=== PATIENT | male | born 1955 | race Caucasian/White ===

== ENCOUNTER 2019-09-24 19:47 | Inpatient (IN) | payer MEDICARE ==
[~2019-09-24] VITALS: Ht 172.7 cm; Wt 70.3 kg
--- NOTE | 2019-09-24 20:03 | NUR ---
Patient in bed, awaiting ER MD gamboa.
[2019-09-24] MEDS ORDERED: MAGN2PIG IV (20:07)
[2019-09-24] MEDS ORDERED: LORA0.5T48 PO (20:07)
[2019-09-24] MEDS ORDERED: DIPH50VI15 IV (20:07)
[2019-09-24] MEDS ORDERED: DEXT50VI3 IV (20:07)
[2019-09-24] MEDS ORDERED: MAGN4PIG3 IV (20:07)
[2019-09-24] MEDS ORDERED: IPRA0.2S6 NEB (20:07)
[2019-09-24] MEDS ORDERED: ALBU1.25 IH (20:07)
[2019-09-24] MEDS ORDERED: BISA10SU95 RC (20:07)
[2019-09-24] MEDS ORDERED: ACET-2154 PO (20:07)
[2019-09-24] MEDS ORDERED: GLUC1VIA2 SQ (20:07)
[2019-09-24] MEDS ORDERED: CYAN25003 SL (20:07)
[2019-09-24] MEDS ORDERED: CLON0.1T PO (20:07)
[2019-09-24] MEDS ORDERED: INSU100I14 SQ (20:07)
[2019-09-24] MEDS ORDERED: ENOX40DI9 SQ (20:07)
[2019-09-24] MEDS ORDERED: PANT40TA2 PO (20:07)
[2019-09-24] MEDS ORDERED: [UNRECOGNIZED DRUG - CODE] IV (20:12)
[2019-09-24] MEDS ORDERED: [UNRECOGNIZED DRUG - CODE] IV (20:12)
[2019-09-24] MEDS ORDERED: TEMA7.5C PO (20:12)
[2019-09-24] MEDS ORDERED: ONDA4VIA52 IV (20:12)
[2019-09-24] MEDS ORDERED: NITR0.4T48 SL (20:12)
[2019-09-24] MEDS ORDERED: [UNRECOGNIZED DRUG - CODE] IV (20:12)
--- NOTE | 2019-09-24 20:33 | NUR ---
Report to Flora MENA on MHU
--- NOTE | 2019-09-24 20:36 | NUR ---
Pt. admitted to MHU , under care of Dr. Gallegos/Alesha. Belongs List completed
[2019-09-24] MEDS ORDERED: ACETAMINOPHEN 325 MG TABLET PO PRN (21:00)
[2019-09-24] MEDS ORDERED: BLOOD SUGAR DIAGNOSTIC 1 EACH STRIP VI ONE (21:00)
[2019-09-24] MEDS ORDERED: MAGNESIUM HYDROXIDE 30 ML LIQUID UDC PO PRN (21:00)
[2019-09-24] MEDS ORDERED: TEMAZEPAM 7.5 MG CAPSULE PO PRN (21:00)
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
[2019-09-24] MEDS ORDERED: NITROGLYCERIN 0.4 MG/TAB BOTTLE SL SCH (22:45)
[2019-09-24] MEDS ORDERED: BISACODYL 10 MG SUPP.RECT RC SCH (22:45)
[2019-09-24] MEDS ORDERED: GLUCAGON,HUMAN RECOMBINANT 1 MG VIAL SQ SCH (22:45)
[2019-09-24] MEDS ORDERED: CLONIDINE HCL 0.1 MG TABLET PO SCH (22:45)
[2019-09-24] MEDS ORDERED: IPRATROPIUM BROMIDE 0.5 MG/2.5 ML NEBU NEB SCH (22:45)
[2019-09-24] MEDS ORDERED: ACETAMINOPHEN 325 MG TABLET PO SCH (22:45)
[2019-09-24] MEDS ORDERED: ALBUTEROL SULFATE 1.25 MG/3 ML NEBU IH SCH (22:45)
[2019-09-24] MEDS ORDERED: ALBUTEROL SULFATE 1.25 MG/3 ML NEBU IH PRN (23:14)
[2019-09-24] MEDS ORDERED: IPRATROPIUM BROMIDE 0.5 MG/2.5 ML NEBU NEB PRN (23:30)
[2019-09-24] MEDS ORDERED: BISACODYL 10 MG SUPP.RECT RC PRN (23:30)
[2019-09-24] MEDS ORDERED: GLUCAGON,HUMAN RECOMBINANT 1 MG VIAL SQ PRN (23:30)
[2019-09-24] MEDS ORDERED: CLONIDINE HCL 0.1 MG TABLET PO PRN (23:30)
[2019-09-24] MEDS ORDERED: NITROGLYCERIN 0.4 MG/TAB BOTTLE SL PRN (23:30)
[2019-09-24 23:41] VITALS: BP 158/81
[2019-09-25] MEDS: LORAZEPAM 1 MG TABLET PO PRN ×2 (01:43→10:50)
--- NOTE | 2019-09-25 06:44 | NUR ---
patient slept for approx 6.15 hrs through the night. will continue to monitor.
[2019-09-25 07:30] VITALS: BP 133/72
[2019-09-25 07:39] LABS: BASOPHILS # (AUTO) 0.1 K/uL (0.0-8.0); BASOPHILS % (AUTO) 1.2 % (0.0-2.0); EOSINOPHILS # (AUTO) 0.1 K/uL (0.0-0.7); EOSINOPHILS % (AUTO) 2.2 % (0.0-7.0); HEMATOCRIT 36.3 % (36.7-47.1); HEMOGLOBIN 12.6 g/dL (12.5-16.3); LYMPHOCYTES # (AUTO) 1.2 K/uL (20.0-40.0); LYMPHOCYTES % (AUTO) 27.7 % (20.5-51.5); MEAN CORPUSCULAR HEMOGLOBIN 31.4 uug (23.8-33.4); MEAN CORPUSCULAR HGB CONC 35 g/dL (32.5-36.3); MEAN CORPUSCULAR VOLUME 90.6 fL (73.0-96.2); MONOCYTES # (AUTO) 0.5 K/uL (2.0-10.0); MONOCYTES % (AUTO) 10.3 % (0.0-11.0); NEUTROPHILS # (AUTO) 2.6 K/uL (1.8-8.9); NEUTROPHILS % (AUTO) 58.6 % (38.5-71.5); PLATELET COUNT (AUTO) 196 K/uL (152-348); RED BLOOD CELL COUNT(AUTO) 4.01 MIL/uL (4.06-5.63); WHITE BLOOD COUNT (AUTO) 4.5 K/uL (3.6-10.2)
[2019-09-25 07:50] LABS: ALANINE AMINOTRANSFERASE 18 U/L (16-63); ALKALINE PHOSPHATASE 89 U/L (50-136); ASPARTATE AMINOTRANSFERASE 14 U/L (15-37); BILIRUBIN,TOTAL 0.8 mg/dL (0.2-1.0); CARBON DIOXIDE 30 mmol/L (21-32); CHLORIDE 99 mmol/L (98-107); CHOLESTEROL 140 mg/dL (<200); CREATININE 0.6 mg/dL (0.6-1.3); GLUCOSE 92 mg/dL (74-106); HDL CHOLESTEROL 68 mg/dL (40-60); POTASSIUM 3.9 mmol/L (3.5-5.1); TOTAL PROTEIN, SERUM 5.6 g/dL (6.4-8.2); TRIGLYCERIDES 42 MG/DL (30-150); UREA NITROGEN, BLOOD 9 mg/dL (7-18)
[2019-09-25] MEDS: ENOXAPARIN SODIUM 40 MG/0.4 ML DISP.SYRIN SQ SCH (09:57)
[2019-09-25] MEDS: PANTOPRAZOLE SODIUM 40 MG TABLET.DR PO SCH (10:36)
--- NOTE | 2019-09-25 15:00 | NUR ---
Gps/Churn Operator- Had been checking doors, forgetful, kept asking about his clothes. Noted patient removing his hospital gown,, per PRINCIPAL ARCHITECT shirt was offered to him, but kept removing. Discouraged from disrobing. Noted patient couple time walking around with pillow case wrapped on his feet, socks offered.
--- NOTE | 2019-09-25 15:06 | NUR ---
Initial discharge plan: Patient currently has this address on file: [address] [address]. Patient unable to answer whether or not this is his current living address. floor service worker spring will continue to work with patient and MD to ensure a safe and proper discharge plan.
--- NOTE | 2019-09-25 15:07 | NUR ---
Social Work Note: This field underwriter called the two number listed in the patient's chart medical record from [facility] ([phone]) which is not a working number and ([phone]) and the person answering said he just got this number 2 months ago and doesn't know anyone by the patient's name. [facility][phone][facility]to inquire about patient and see if he is connected with them and possibly get an address on file for the patient, however, they are unable to give me any information.
--- NOTE | 2019-09-25 15:25 | NUR ---
Social Work Note: castables worker contacted [facility] ([phone]) to cofirm if patient is part of their system. Frances stated that the patient has been there last 3 years ago for services. ABHINAV confirmed the pt's address which is different from the one they have in their system. Frances was able to give this advertising copy writer a phone number for a sister named Enma ([phone]). this advertising copy writer called Enma and left a voicemail, waiting for a call back.
[2019-09-25 15:46] VITALS: BP 129/68
--- NOTE | 2019-09-25 16:16 | NUR ---
Firearms Report (DOJ): Mapping Editor completed and submitted a DPJ firearms report for 5150 grave disability certification. A copy of report has been placed in patient chart.
[2019-09-25] MEDS: MAG HYDROX/AL HYDROX/SIMETH 30 ML LIQUID UDC PO PRN (18:39)
[2019-09-25 20:09] VITALS: BP 157/63
[2019-09-26] MEDS: PANTOPRAZOLE SODIUM 40 MG TABLET.DR PO SCH (06:35)
--- NOTE | 2019-09-26 06:53 | NUR ---
PATIENT SLEPT FOR APPROX 7.30 HRS THROUGH THE NIGHT. PATIENT CONTINUE WITH LOW DEPRESSED MOOD, BLUNTED AFFECT, ISOLATED, WITHDRAWN, REFUSING TO ANSWER QUESTION, DECREASED EATING. PT REFUSED MOM FOR CONSTIPATION SINCE NO RECORDED BM SINCE 09/14. PT ALSO REFUSED PRUNE JUICE. V/S STABLE AT THIS TIME. WILL CONTINUE TO MONITOR. Addendum: 09/26/19 at 0700 by JUAN MIGUEL VELOZ RN PLEASE DISREGARD THIS NOTE: WRONG PATIENT.
--- NOTE | 2019-09-26 07:02 | NUR ---
PATIENT SLEPT FOR APPROX 7.30 HRS THROUGH THE NIGHT. HE WAS SEEN BY DR MCGUIRE LAST NIGHT. HE IS COMPLIANT WITH MEDICATION AND CARE. HE IS NOTED FORGETFUL, POOR INSIGHT AND JUDGMENT INTO HIS ADMISSION TO MHU IS ALSO NOTED. WILL CONTINUE TO MONITOR.
[2019-09-26 07:30] VITALS: BP_SYST 148; BP_SYST 150; BP_DIAS 73
[2019-09-26] MEDS: risperiDONE 1 MG TABLET PO SCH ×3 (09:00→20:34)
[2019-09-26] MEDS: CYANOCOBALAMIN 1,000 MCG TABLET PO SCH (10:23)
[2019-09-26] MEDS: ENOXAPARIN SODIUM 40 MG/0.4 ML DISP.SYRIN SQ SCH (11:07)
[2019-09-26 16:53] VITALS: BP 141/72
[2019-09-26 20:13] VITALS: BP 142/68
--- NOTE | 2019-09-27 06:17 | NUR ---
Gps: patient remain calm and cooperative but forgetful, slept 5.15 hrs through the night. assisted with adl's. continue monito for safety.
[2019-09-27] MEDS: PANTOPRAZOLE SODIUM 40 MG TABLET.DR PO SCH (06:28)
[2019-09-27 07:30] VITALS: BP 135/78
[2019-09-27] MEDS: ENOXAPARIN SODIUM 40 MG/0.4 ML DISP.SYRIN SQ SCH (08:28)
[2019-09-27] MEDS: CYANOCOBALAMIN 1,000 MCG TABLET PO SCH (08:29)
[2019-09-27] MEDS: risperiDONE 1 MG TABLET PO SCH ×2 (08:44→21:01)
--- NOTE | 2019-09-27 08:55 | NUR ---
PHARMACY NOTE; Patients am dose of 1mg Risperidone was given per order.
--- NOTE | 2019-09-27 15:53 | NUR ---
PATIENT REMAINS CALM BUT ISOLATIVE AND WITHDRAWN. ANSWERS TO QUESTION ARE EITHER NOT ACKNOWLEDGED OR HE WILL ANSWER ONE AND NO MORE. HE KEPT FOLDING HIS T-SHIRT. ENCOURAGED TO COME OUT AND PARTICIPATE IN GROUP THERAPY.WILL CONTINUE TO MONITOR.
[2019-09-27 16:01] VITALS: BP 150/72
[2019-09-27 20:00] VITALS: BP 143/70
[2019-09-27] MEDS: LORAZEPAM 1 MG TABLET PO PRN (22:13)
--- NOTE | 2019-09-27 22:14 | NUR ---
PT WAS NOTED ANXIOUS AND HAVING VISUAL HALLUCINATION. HE APPROACHED THIS SMOKING PIPES CLEANER AND STATED, "COME COME, THERE IS SOMETHING GOING ON IN MY ROOM". PATIENT NOTED HYPERVIGILANT. HE WAS REASSURED AND REDIRECTED. ATIVAN 1MG PO PRN WAS GIVEN. WILL CONTINUE TO MONITOR.
[2019-09-28] MEDS: PANTOPRAZOLE SODIUM 40 MG TABLET.DR PO SCH (06:39)
--- NOTE | 2019-09-28 07:00 | NUR ---
Patient slept for approx. 4.45 hrs through the night. compliant with medication regiment and care. will continue to monitor.
[2019-09-28 08:03] VITALS: BP 140/74
[2019-09-28] MEDS: CYANOCOBALAMIN 1,000 MCG TABLET PO SCH (08:35)
[2019-09-28] MEDS: risperiDONE 1 MG TABLET PO SCH ×2 (08:35→20:04)
[2019-09-28] MEDS: ENOXAPARIN SODIUM 40 MG/0.4 ML DISP.SYRIN SQ SCH (08:36)
--- NOTE | 2019-09-28 12:08 | NUR ---
Discharge Planning: copy worker faxed patient's referral packet with attention to [place] to the following facilities for review and possible placement; [facility] ([phone]), [facility] ([phone]), [facility] ([phone]), [facility] ([phone]). Addendum: 09/28/19 at 1559 by DEONNA HURTADO Patient is accepted to [facility] ([phone]) upon discharge.
[2019-09-28 15:51] VITALS: BP 131/59
[2019-09-28 20:00] VITALS: BP 157/68
[2019-09-28] MEDS: risperiDONE 0.5 MG TABLET PO SCH (21:00)
[2019-09-28] MEDS ORDERED: risperiDONE 0.5 MG TABLET PO ONE (22:00)
[2019-09-28] MEDS ORDERED: risperiDONE 0.5 MG TABLET ONE (22:34)
[2019-09-29] MEDS: PANTOPRAZOLE SODIUM 40 MG TABLET.DR PO SCH (06:33)
[2019-09-29 07:30] VITALS: BP 124/62
[2019-09-29] MEDS: risperiDONE 0.5 MG TABLET PO SCH ×2 (08:45→20:07)
[2019-09-29] MEDS: CYANOCOBALAMIN 1,000 MCG TABLET PO SCH (08:47)
[2019-09-29] MEDS: ENOXAPARIN SODIUM 40 MG/0.4 ML DISP.SYRIN SQ SCH (08:53)
[2019-09-29 16:00] VITALS: BP 115/67
[2019-09-29 20:20] VITALS: BP 124/69
--- NOTE | 2019-09-29 23:55 | NUR ---
GPS ADMISSION NOTED: AT APPROX 2300 ADMITTED 62 YEARS OLD FEMALE, VIA WHEELCHAIR, FOR[place] ER TO [facility] ON A 5150 FOR GD. PER RECORDS, PATIENT COMES FROM [facility] PER HOLD, PATIENT WAS GETTING CONFUSED, AGGRESSIVE AND AGITATIVE BECAUSE THEY ARE NOT LETTING HER GO TO [place] WHERE SHE BELIEVES SHE LIVES, DURING FACE TO FACE ASSESSMENT BY CRISIS RN, PATIENT STATED "I AM HERE BECAUSE THEY WANT ME TO VISIT MY MOTHER MARII". "I DON'T FEEL GOOD BECAUSE I ATE TOO MUCH ENFERMEDADES , CHOLESTEROL, SYPHILIS AND ARTHRITIS. I NEED 4 MORE TYLENOL TO FEEL BETTER". SHE ALSO BECAME AGGRESSIVE TOWARD THE CRISIS RN WHEN ASKED IF SHE HAD A FAMILY. UPON ADMISSION, PATIENT WAS NOTED CALM AND PLEASANT, SHE STATED, "HAPPY NEW YEARS, HAPPY NEW YEARS". FACE TO FACE ASSESSMENT WAS DONE, PT REFLECTS WHAT IS WRITTEN ON THE HOLD. SHE IS NOTE A/O X 3 (KNEW HER NAME, TIME, AND SHE STATED, "THIS IS A HOSPITAL") HOWEVER, PATIENT IS NOTED TANGENTAL, DELUSIONAL AND FLIGHT OF IDEAS. WHEN ASKED WHAT SHE IS HERE, SHE STATED, "BECAUSE I NEED TO GO TO [place], THAT IS WHERE MY SON AND SISTER LIVES". PT DENIES SI/HI/VH/AH. PATIENT WAS GIVEN HER ADVISEMENT. SHE STATED, "YES I GOT UPSET WITH THEM BECAUSE THEY DID NOT WANT TO TAKE MY BROTHER TO SURGERY BECAUSE HIS LEGS ARE MISSING AND HE NEEDS SURGERY". PATIENT WAS GIVEN THE "PATIENT RIGHTS" BOOKLET. SHE WAS INTRODUCED TO UNIT RULES, HER ROOM AND ROOM MATE AND V/S WERE TAKEN. ACCUCHECK 105, PATIENT WAS GIVEN SNACKS AND PO FLUIDS. HER BELONGINGS WERE INVENTORIED AND SECURED AND STORED. PT CHANGED INTO HOSPITAL GOWN, SKIN ASSESSMENT WAS DONE, SKIN NOTED INTACT. PATIENT IS UNDER THE CARE OF DR FOX AND DR CHO. WE WILL CONTINUE TO MONITOR, Addendum: 09/30/19 at 0154 by JUAN MIGUEL VELOZ RN PLEASE DISREGARD THIS NOTE. WRONG PATIENT. Addendum: 09/30/19 at 0155 by JUAN MIGUEL VELOZ RN PLEASE DISREGARD THIS NOTE, WRONG PATIENT
--- NOTE | 2019-09-30 | NUR ---
PATIENT CONTINUE PACING THE HALLWAY AT TIMES. NOTED DELUSIONAL, TANGENTAL, FLIGHT OF IDEAS, INTRUSIVE. HOWEVER, NO AGGRESSIVE/COMBATIVE BX NOTED AT THIS TIME. PATIENT REFUSED PO PRNs MEDICATION FOR ANXIETY AND FOR INSOMNIA. HE STATED, "DON'T GIVE ME THAT, IT IS POISON" "I AM NOT TAKING ANY MORE PILLS". PATIENT IS REASSURED AND REDIRECTED. WILL CONTINUE TO MONITOR.
--- NOTE | 2019-09-30 06:35 | NUR ---
PATIENT SLEPT FOR APPROX. 1.00 HRS THROUGH THE NIGHT. PO PRNs WERE OFFERED; HOWEVER, PATIENT REFUSED. WILL CONTINUE TO MONITOR.
[2019-09-30] MEDS: PANTOPRAZOLE SODIUM 40 MG TABLET.DR PO SCH (06:55)
[2019-09-30] MEDS: CYANOCOBALAMIN 1,000 MCG TABLET PO SCH (08:19)
[2019-09-30] MEDS: risperiDONE 0.5 MG TABLET PO SCH ×2 (08:19→20:07)
[2019-09-30 08:30] VITALS: BP 142/77
--- NOTE | 2019-09-30 12:42 | NUR ---
received a call from a Officer Arslan Oglesby from [facility] , officer Mendel says that he left message with school social worker that his investigating a certain bank account of the patient and he needs to reach school social worker, he wish to get return call or got email at [email or web address] report#[phone] for reference , will f/up with school social worker
[2019-09-30 15:49] VITALS: BP 128/66
[2019-09-30 20:47] VITALS: BP 133/66
[2019-10-01] MEDS: PANTOPRAZOLE SODIUM 40 MG TABLET.DR PO SCH (06:06)
[2019-10-01 07:58] VITALS: BP 116/62
[2019-10-01] MEDS: risperiDONE 0.5 MG TABLET PO SCH ×2 (09:06→20:04)
[2019-10-01] MEDS: CYANOCOBALAMIN 1,000 MCG TABLET PO SCH (09:06)
--- NOTE | 2019-10-01 12:29 | NUR ---
Gps/Seamless Tube Mill Operator- Flat, isolative, encouraged eating in the dinning room. Uses gestures , encouraged to verbalized needs.
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
--- NOTE | 2019-10-01 15:43 | NUR ---
Individual Therapy Note: Grill Associate met with patient to provide supportive counseling and individual therapy. Patient is unable to acknowledge the social science teacher's visit and is nonresponsive at this moment. Grill Associate will remain available to the patient and provide support as needed.
[2019-10-01 16:58] VITALS: BP 110/72
[2019-10-01 20:08] VITALS: BP 132/70
[2019-10-02] MEDS: PANTOPRAZOLE SODIUM 40 MG TABLET.DR PO SCH (06:30)
[2019-10-02 07:30] VITALS: BP 140/70
[2019-10-02] MEDS: risperiDONE 0.5 MG TABLET PO SCH ×2 (08:55→20:03)
[2019-10-02] MEDS: CYANOCOBALAMIN 1,000 MCG TABLET PO SCH (08:56)
[2019-10-02 16:46] VITALS: BP 105/55
--- NOTE | 2019-10-02 17:43 | NUR ---
Gps/Systems Software Designer- Patient was able to shower self ind. after set up. Coming out of his room to bring his tray back to the cart . Making his simple needs known. Noted patient getting friendly with female patient , monitor behavior towards female patient, Patient reoriented to why and reason he's here, reassured. continued progress while he's in the MHU..
[2019-10-02 20:17] VITALS: BP 148/74
[2019-10-03] MEDS: PANTOPRAZOLE SODIUM 40 MG TABLET.DR PO SCH (06:23)
[2019-10-03 07:30] VITALS: BP 129/63
[2019-10-03] MEDS: risperiDONE 0.5 MG TABLET PO SCH ×3 (08:40→21:48)
[2019-10-03] MEDS: CYANOCOBALAMIN 1,000 MCG TABLET PO SCH (08:40)
--- NOTE | 2019-10-03 15:05 | NUR ---
Gps/Sand Temperer- Patient came to the Nurses Station claimed there is so much blood in his bed, and does not want to turn on the light because he does not want to see it. Redirected patient back to his room lights turned on , tried to reorient patient, encouraged participation in his group therapy
[2019-10-03 16:00] VITALS: BP 136/46
--- NOTE | 2019-10-03 17:58 | NUR ---
Gps/Platemaker- Patient came looking for help around claimed, he smells formalin in some, rooms paranoid, suspicious "there in something going on in this place./ pt." Reality reorientation provided, Requesting to have more foods , claimed he did not eat dinner, noted patients' tray empty .
--- NOTE | 2019-10-03 23:34 | NUR ---
GPS/NSG PATIENT OBSERVED ON UNIT WITH INCREASED PARANOID BEHAVIOR, KNOCKED MEDICATION OUT OF NURSES HAND. PATIENT REFUSED HS MEDICATION AND BECAME AGITATED WHEN PROMPTED TO TAKE IT.
[2019-10-04] MEDS: PANTOPRAZOLE SODIUM 40 MG TABLET.DR PO SCH (06:37)
[2019-10-04 07:30] VITALS: BP 147/66
[2019-10-04] MEDS: CYANOCOBALAMIN 1,000 MCG TABLET PO SCH (09:32)
[2019-10-04] MEDS: risperiDONE 0.5 MG TABLET PO SCH ×2 (09:33→20:49)
[2019-10-04 16:00] VITALS: BP 125/68
--- NOTE | 2019-10-04 17:24 | NUR ---
Gps/Equal Opportunity Officer- Had been medications complaint, was checked for cheeking meds, none noted. Will continue to monitor behavior., and continued compliance.
[2019-10-04 20:06] VITALS: BP 132/59
[2019-10-05] MEDS: PANTOPRAZOLE SODIUM 40 MG TABLET.DR PO SCH (06:59)
[2019-10-05 07:30] VITALS: BP 123/66
[2019-10-05] MEDS: risperiDONE 0.5 MG TABLET PO SCH (08:09)
[2019-10-05] MEDS: CYANOCOBALAMIN 1,000 MCG TABLET PO SCH (08:10)
--- NOTE | 2019-10-05 09:17 | NUR ---
GPS: RECEIVED PATIENT AOX2-3, COMPLIANT WITH MEDICATION, PATIENT MONITORED FOR CHEEKING MEDICATION, NONE NOTED AT THIS TIME, DENIES SI AND HI, WILL CONTINUE MONITOR
--- NOTE | 2019-10-05 12:15 | NUR ---
Discharge Planning: structural iron worker faxed patient referral packet including the history and physical, consultation, medication list, and progress notes to the following facilities for review and possible intermediate placement: [place] [address] [place] [address] [facility] [address] [place] [address] [facility] [address] [place] [address]
--- NOTE | 2019-10-05 17:49 | NUR ---
GPS: patient calm and cooperative, remains isolative and withdrawn ,
[2019-10-05] MEDS: risperiDONE 2 MG TABLET PO SCH ×2 (20:13→20:23)
[2019-10-05] MEDS ORDERED: risperiDONE 1 MG TABLET PO SCH (21:00)
--- NOTE | 2019-10-06 02:59 | NUR ---
GPS: Pt.still awake at this time. Paranoid,suspicious,mentally pre-occupied,argumentative and easily irritable when being re-directed and when staff is trying to set limits on him. Refused sleeping pill and anxiety med.earlier when offered despite explanation of risks vs.benefits x3. Safe/quiet environment provided to facilitate sleep. Will continue to monitor behavior for further escalation.
--- NOTE | 2019-10-06 03:26 | NUR ---
Medication Note: Initial Risperdal order was 1.5mg HS. Packages were scanned and opened to administer to Pt, but Dr Eduardo changed the order to 2 mg. Risperdal 1.5mg wasted. Pt refused his HS medication, Risperdal 2mg tab returned.
[2019-10-06] MEDS: PANTOPRAZOLE SODIUM 40 MG TABLET.DR PO SCH (06:00)
--- NOTE | 2019-10-06 06:10 | NUR ---
Pt refused AM Protonix
[2019-10-06 08:00] VITALS: BP 150/76
[2019-10-06] MEDS: CYANOCOBALAMIN 1,000 MCG TABLET PO SCH (08:18)
[2019-10-06] MEDS: risperiDONE 2 MG TABLET PO SCH ×2 (08:18→20:05)
--- NOTE | 2019-10-06 09:46 | NUR ---
Social Work Note: Metal Cabinet Finisher received a call from ui lead developer Conan ([phone]) from [facility] regarding an investigation regarding the patient's bank account. This selling underwriter informed of the conversation last week with Michele grinding wheel operator #[phone] ([phone]) regarding this case. Garrett stated that per records, patient has several addresses on file and a large bank account balance, which indicates that patient might not be homeless. However, this selling underwriter informed that when trying to communicate this concern with the patient, the patient is unable to acknowledge or responds to the information. This selling underwriter informed Garrett that patient does not have next of kin contacts. This selling underwriter gave Garrett patient's discharge information that is set for tomorrow to [address] [address] ([phone]).
[2019-10-06] MEDS: MAG HYDROX/AL HYDROX/SIMETH 30 ML LIQUID UDC PO PRN (12:56)
[2019-10-06 17:00] VITALS: BP 134/61
--- NOTE | 2019-10-06 17:50 | NUR ---
GPS: received patient AOx1-2, compliant with medication , denies SI and HI, patient calm and cooperative, monitored for cheeking medication, none at this time, patient remain isolative and withdrawn will continue monitor
[2019-10-06 19:30] VITALS: BP 157/75
[2019-10-07] MEDS: PANTOPRAZOLE SODIUM 40 MG TABLET.DR PO SCH (06:12)
[2019-10-07 07:30] VITALS: BP 116/52
--- NOTE | 2019-10-07 08:05 | NUR ---
Social Work Note/Firearms Report: Netezza Developer completed and submitted a DPJ firearms report for 5150 grave disability certification. A copy of report has been placed in patient chart.
--- NOTE | 2019-10-07 08:05 | NUR ---
Social Work Note/Discharge: Patient will be discharged to [facility], [place] [address] ([phone]) via Ambulance transportation. Patient will be transported at 1:00pm. Field Sales Trainer [facility] ([phone]), who stated patient will be accepted to the facility today. Patient does not have any family or next of kin contacts at this time. Patient is alert and oriented x3-4 and is unable to plan for self-care. Patient denies any suicidal or homicidal ideation. Patient is aware and agreeable with discharge plans. Patient presents with calm mood and euthymic affect. Patient will continue to follow-up with Psychiatrist Dr. Eduardo and Complaint Clerk Dr. Conde at [facility] [place] [phone] ([phone]). Patient presents with euthymic mood and congruent affect.
--- NOTE | 2019-10-07 08:30 | NUR ---
Pt is being discharged today. Pt is aware and very cooperative. Remains very quite in his room.
[2019-10-07] MEDS: CYANOCOBALAMIN 1,000 MCG TABLET PO SCH (09:27)
[2019-10-07] MEDS: risperiDONE 2 MG TABLET PO SCH (09:27)
--- NOTE | 2019-10-07 12:30 | NUR ---
Pt is going to [facility]. Exit care done and education done. Report called in to JULIAN MENA at [facility]. Condition is stable.
--- NOTE | 2019-10-07 13:50 | NUR ---
GPS: received patient for transfer to [facility], patient received home medication instruction, MD aware of the discharged
== END 2019-10-07 14:00 | DRG 885 ==
LOC: ER 19:47 → GPS 20:45
PROVIDERS: ADMIT Psychiatry & Neurology Psychiatry; ATTEND Student in an Organized Health Care Education/Training Program
DX: F29 Unspecified psychosis not due to a substance or known physiological condition (principal); E87.1 Hypo-osmolality and hyponatremia; E11.9 Type 2 diabetes mellitus without complications; Z79.4 Long term (current) use of insulin; Z87.891 Personal history of nicotine dependence; I10 Essential (primary) hypertension; F31.9 Bipolar disorder, unspecified; F43.10 Post-traumatic stress disorder, unspecified
CPT/HCPCS: 36415; 84443; 85025; 93005; A4663; J1650

== ENCOUNTER 2020-04-14 20:52 | Inpatient (IN) | payer MEDICARE, OTHER ==
[~2020-04-14] VITALS: Ht 180.3 cm; Wt 82.6 kg
[~2020-04-14 20:52] MED LIST: ACET-2154 PO; ALBU1.25 IH; BISA10SU95 RC; CLON0.1T PO; CYAN25003 SL; DEXT50VI3 IV; ENOX40DI9 SQ; GLUC1VIA2 SQ; INSU100I14 SQ; IPRA0.2S6 NEB; NITR0.4T48 SL; PANT40TA2 PO; TEMA7.5C PO
[2020-04-14] MEDS ORDERED: RISP0.5T5 PO (21:04)
[2020-04-14] MEDS ORDERED: HALO50VI4 IM (21:04)
--- NOTE | 2020-04-14 21:08 | NUR ---
Medically cleared by Dr Albert.
--- NOTE | 2020-04-14 21:56 | NUR ---
Transfered to U via wheelchair.
[2020-04-14] MEDS ORDERED: MAG HYDROX/AL HYDROX/SIMETH 30 ML LIQUID UDC PO PRN (22:15)
[2020-04-14] MEDS ORDERED: TEMAZEPAM 7.5 MG CAPSULE PO PRN (22:15)
[2020-04-14] MEDS ORDERED: LORAZEPAM 1 MG TABLET PO PRN (22:15)
--- NOTE | 2020-04-14 23:26 | NUR ---
Admitted a 65-year-old homeless male from ER to [facility] @2200 on 5150 hold due to GD. Patient came by wheelchair accompanied by an ER nurse. AAO x3, able to make needs known. No acute distress or SOB was noted. No complain of pain. VSS. Condition fair. Admitting diagnosis: psychosis. Denies SI or hurting others. History was obtained from patient and previous medical record. Physical assessment done. Patient has only 4 toes in right foot and a surgical site on his right sole. Skin assessed, picture taken and put in the chart. Safety measures maintained. Fall prevention observed. Continue to monitor.
[2020-04-15 06:46] LABS: BILIRUBIN,TOTAL 0.2 mg/dL (0.2-1.0); CREATININE 0.8 mg/dL (0.6-1.3); TOTAL PROTEIN, SERUM 5.9 g/dL (6.4-8.2)
[2020-04-15 07:30] VITALS: BP 164/75
[2020-04-15] MEDS ORDERED: ONDANSETRON HCL 4 MG TABLET PO PRN (10:00)
[2020-04-15] MEDS ORDERED: GLUCAGON,HUMAN RECOMBINANT 1 MG VIAL SQ SCH (11:15)
[2020-04-15] MEDS ORDERED: BISACODYL 10 MG SUPP.RECT RC SCH (11:15)
[2020-04-15] MEDS ORDERED: DEXTROSE 50% 50 ML DISP.SYRIN IV PRN (11:15)
[2020-04-15] MEDS ORDERED: ACETAMINOPHEN 325 MG TABLET PO SCH (11:15)
[2020-04-15] MEDS ORDERED: ALBUTEROL SULFATE 1.25 MG/3 ML NEBU IH PRN (11:15)
[2020-04-15] MEDS ORDERED: BISACODYL 10 MG SUPP.RECT RC PRN (11:24)
--- NOTE | 2020-04-15 11:38 | NUR ---
ABHINAV Initial Discharge Plan: Patient is currently homeless and will need alternate placement upon discharge such as senior care facility. Patient has no next of kin or supportive contacts at this time. SW will continue to work with patient and MD to ensure a safe and proper discharge plan.
--- NOTE | 2020-04-15 11:55 | NUR ---
Social Work Firearms Report (DOJ): Digital Commentator completed and submitted a DPJ firearms report for 5150 grave disability certification. A copy of report has been placed in patient chart.
[2020-04-15] MEDS: BLOOD SUGAR DIAGNOSTIC 1 EACH STRIP VI SCH ×3 (12:19→20:42)
[2020-04-15] MEDS: INSULIN REGULAR, HUMAN 300 UNIT/3 ML VIAL SQ PRN (12:33)
--- NOTE | 2020-04-15 12:33 | NUR ---
Patient blood sugar 197, refuse insulin sliding scale protocol despite of encouragement. will continue monitor
[2020-04-15 15:22] VITALS: BP 125/71
--- NOTE | 2020-04-15 17:04 | NUR ---
Patient seen and examined by JENNIFER campos with new orders. no episode of vomiting noted. no agitation noted. will continue monitor
[2020-04-15] MEDS: CARVEDILOL 6.25 MG TABLET PO SCH (17:28)
[2020-04-15 20:00] VITALS: BP 136/81
[2020-04-15] MEDS: risperiDONE 0.5 MG TABLET PO SCH (20:36)
[2020-04-16] MEDS: ACETAMINOPHEN 325 MG TABLET PO PRN (05:49)
[2020-04-16] MEDS: BLOOD SUGAR DIAGNOSTIC 1 EACH STRIP VI SCH (05:56)
--- NOTE | 2020-04-16 07:26 | NUR ---
PATIENT ALERT BUT FORGETFUL, COOPERATIVE WITH CARE, AND MEDICATIONS, CONT TO MONITOR.
[2020-04-16 07:30] VITALS: BP 142/75
[2020-04-16 07:33] LABS: BASOPHILS # (AUTO) 0.1 K/uL (0.0-8.0); BASOPHILS % (AUTO) 0.9 % (0.0-2.0); EOSINOPHILS # (AUTO) 0.1 K/uL (0.0-0.7); HEMATOCRIT 38.8 % (36.7-47.1); HEMOGLOBIN 12.8 g/dL (12.5-16.3); LYMPHOCYTES # (AUTO) 1.4 K/uL (20.0-40.0); LYMPHOCYTES % (AUTO) 12.4 % (20.5-51.5); MEAN CORPUSCULAR HEMOGLOBIN 29.2 uug (23.8-33.4); MEAN CORPUSCULAR HGB CONC 33 g/dL (32.5-36.3); MEAN CORPUSCULAR VOLUME 88.3 fL (73.0-96.2); MONOCYTES # (AUTO) 0.6 K/uL (2.0-10.0); MONOCYTES % (AUTO) 5.5 % (0.0-11.0); NEUTROPHILS # (AUTO) 8.8 K/uL (1.8-8.9); NEUTROPHILS % (AUTO) 80.2 % (38.5-71.5); PLATELET COUNT (AUTO) 350 K/uL (152-348)
[2020-04-16 07:46] LABS: CREATININE 0.7 mg/dL (0.6-1.3); MAGNESIUM 1.6 mg/dL (1.8-2.4); PHOSPHOROUS 3.5 mg/dL (2.5-4.9); POTASSIUM 3.9 mmol/L (3.5-5.1)
[2020-04-16] MEDS: PANTOPRAZOLE SODIUM 40 MG TABLET.DR PO SCH (08:15)
[2020-04-16] MEDS: risperiDONE 0.5 MG TABLET PO SCH ×2 (08:15→20:18)
[2020-04-16] MEDS: CARVEDILOL 6.25 MG TABLET PO SCH ×2 (08:16→17:06)
[2020-04-16] MEDS: INSULIN REGULAR, HUMAN 300 UNIT/3 ML VIAL SQ PRN (08:17)
[2020-04-16] MEDS: ENOXAPARIN SODIUM 40 MG/0.4 ML DISP.SYRIN SQ SCH (08:30)
--- NOTE | 2020-04-16 08:37 | NUR ---
GPS: RECEIVED PATIENT AOX1, PATIENT LOOKS UNKEPT AND DISORGANIZED, PATIENT COMPLIANT WITH ORAL MEDICATION HOWEVER REFUSED HIS INSULIN, NOTED THAT PATIENT ALSO REFUSE HIS INSULIN YESTERDAY, EDUCATED THE PATIENT REGARDING HIS DIABETES AND HX OF TOE AMPUTATION, BUT STILL PATIENT REFUSED, PATIENT ALSO PARANOID AND DELUSIONAL, AND RESPONDING TO INTERNAL STIMULI, WILL , NOTIFIED MD OF THE PATIENTS BEHAVIOR, WILL CONTINUE MONITOR
[2020-04-16] MEDS ORDERED: ENOXAPARIN SODIUM 40 MG/0.4 ML DISP.SYRIN SQ SCH (09:00)
--- NOTE | 2020-04-16 09:25 | NUR ---
spoke with sales associate key holder beth mendiola regarding the previous UA and current WBC level, will follow up
--- NOTE | 2020-04-16 09:45 | NUR ---
follow up on the UA culture result done in the previous facility, [facility] , spoke with Devin and will fax the result of the UA culture, will notify the MD
--- NOTE | 2020-04-16 10:02 | NUR ---
JENNIFER mendiola ordered UA CS, collected Urine and send to labs
[2020-04-16] MEDS ORDERED: MAGNESIUM OXIDE 400 MG TABLET PO ONE (10:15)
--- NOTE | 2020-04-16 10:41 | NUR ---
patient was previously DC from [facility] last Oct [address] haq, patient has no recollection of the event and denies that he was in the unit before
[2020-04-16 11:09] LABS: *BILIRUBIN,URIN NEGATIVE (NEGATIVE); *CLARITY,URINE CLEAR (CLEAR); *COLOR,URINE YELLOW (YELLOW); *KETONES,URINE NEGATIVE (NEGATIVE); LEUKOCYTE ESTERASE ,URINE NEGATIVE (NEGATIVE); NITRITE, URINE NEGATIVE (NEGATIVE); PH,URINE 7.5 (5.0-8.0); UGLUCOSE TRACE (NEGATIVE)
[2020-04-16 11:19] LABS: *BLOOD, URINE TRACE (NEGATIVE)
[2020-04-16 11:48] LABS: THYROID STIMULATING HORMONE 0.727 mIU/mL (0.358-3.740)
[2020-04-16 12:27] LABS: URIC ACID 3.2 mg/dL (3.5-7.2)
--- NOTE | 2020-04-16 15:45 | NUR ---
patient seen by batch maker, tolerated procedure
[2020-04-16 16:00] VITALS: BP 146/75
[2020-04-16 16:27] LABS: BACTERIA,URINE FEW /HPF (NONE SEEN); SQUAMOUS EPITHELIAL CELL,UR FEW /HPF (NONE SEEN); WBC,URINE 0-3 /HPF (0-3)
[2020-04-16] MEDS: METFORMIN HCL 500 MG TABLET PO SCH (17:05)
--- NOTE | 2020-04-16 18:15 | NUR ---
Patient on fluid restriction 800ml/day due to his condition, patient been compliant medication, no distress at this time, ask to wear the non skid socks properly, will continue monitor
[2020-04-16 20:57] VITALS: BP 123/68
--- NOTE | 2020-04-17 02:41 | NUR ---
RECEIVED PATIENT SLEEPING AWAKE IN BED IN BED. CALM AND COOPERATIVE WITH HIS CARE AND MEDICATIONS.ON FLUID RESTRICTIONS.VISUAL CHECKS MADE ON HIM FOR SAFETY. WILL CONTINUE TO MONITOR.
--- NOTE | 2020-04-17 06:29 | NUR ---
SLEPT FOR 7:30.
[2020-04-17 07:18] LABS: BASOPHILS # (AUTO) 0.1 K/uL (0.0-8.0); BASOPHILS % (AUTO) 1.2 % (0.0-2.0); EOSINOPHILS # (AUTO) 0.1 K/uL (0.0-0.7); EOSINOPHILS % (AUTO) 1.8 % (0.0-7.0); HEMATOCRIT 35.1 % (36.7-47.1); LYMPHOCYTES # (AUTO) 1.3 K/uL (20.0-40.0); LYMPHOCYTES % (AUTO) 18.4 % (20.5-51.5); MEAN CORPUSCULAR HEMOGLOBIN 29.7 uug (23.8-33.4); MEAN CORPUSCULAR HGB CONC 34 g/dL (32.5-36.3); MEAN CORPUSCULAR VOLUME 87.2 fL (73.0-96.2); MONOCYTES # (AUTO) 0.7 K/uL (2.0-10.0); MONOCYTES % (AUTO) 9.5 % (0.0-11.0); NEUTROPHILS # (AUTO) 4.7 K/uL (1.8-8.9); NEUTROPHILS % (AUTO) 69.1 % (38.5-71.5); PLATELET COUNT (AUTO) 367 K/uL (152-348); RED BLOOD CELL COUNT(AUTO) 4.03 MIL/uL (4.06-5.63); WHITE BLOOD COUNT (AUTO) 6.9 K/uL (3.6-10.2)
[2020-04-17 07:30] VITALS: BP 142/69
[2020-04-17 07:31] LABS: CREATININE 0.7 mg/dL (0.6-1.3); PHOSPHOROUS 3.7 mg/dL (2.5-4.9); POTASSIUM 4.1 mmol/L (3.5-5.1)
[2020-04-17] MEDS: METFORMIN HCL 500 MG TABLET PO SCH ×2 (07:57→17:00)
[2020-04-17] MEDS: PANTOPRAZOLE SODIUM 40 MG TABLET.DR PO SCH (08:00)
[2020-04-17] MEDS: risperiDONE 0.5 MG TABLET PO SCH ×2 (08:02→21:00)
[2020-04-17] MEDS: ENOXAPARIN SODIUM 40 MG/0.4 ML DISP.SYRIN SQ SCH ×2 (08:03→09:00)
[2020-04-17] MEDS: AMMONIUM LACTATE 12% LOTION 225 GM BOTTLE TP SCH (08:04)
[2020-04-17] MEDS: CLOTRIMAZOLE 1% CREAM 30 GM TUBE TOP SCH (08:04)
[2020-04-17] MEDS: CARVEDILOL 6.25 MG TABLET PO SCH ×2 (08:05→17:01)
--- NOTE | 2020-04-17 08:44 | NUR ---
GPS: received patient AOx1-2, patient on fluid restriction on 800ml /day patient been asking for water and easily irritable and forgetful with details, patient was redirectable and cooperative, compliant with medication eccept on his LOVEMd john TAYLOR aware
[2020-04-17 15:16] VITALS: BP 126/71
--- NOTE | 2020-04-17 15:28 | NUR ---
patient approach the station and ask for assistance, patient verbalizes that he felt some hard in his inguinal area, patient denies pain and denies trouble in urination, notify MD about the patients concern
[2020-04-17] MEDS ORDERED: BENZOCAINE/MENTH/CETYLPYRD LOZENGE MM PRN (16:30)
--- NOTE | 2020-04-17 18:10 | NUR ---
patient calm cooperatyive, denies SI and HI at this time, no distress
[2020-04-17 19:59] VITALS: BP 127/64
--- NOTE | 2020-04-17 23:42 | NUR ---
RECEIVED PATIENT WALKING UP AND DOWN THE HALLWAY.IRRITABLE AND MILDLY AGITATED. INITIALLY REFUSED HIS MEDICATIONS AND SAID TO THE NURSE WHEN IT WAS OFFERED A SECOND TIME"GET AWAY FROM ME YOU NUT CHICK'.MOOD IS LABILE .WILL CONTINUE TO MONITOR.
[2020-04-18] MEDS ORDERED: PANTOPRAZOLE SODIUM 40 MG TABLET.DR PO SCH (06:00)
--- NOTE | 2020-04-18 06:28 | NUR ---
SLEPT FOR APPROX.5:15 HOURS. UP AND HAS TAKEN A SHOWER.
[2020-04-18 07:30] VITALS: BP 128/79
[2020-04-18] MEDS: ENOXAPARIN SODIUM 40 MG/0.4 ML DISP.SYRIN SQ SCH (09:00)
[2020-04-18] MEDS: CARVEDILOL 6.25 MG TABLET PO SCH ×2 (09:55→17:39)
[2020-04-18] MEDS: risperiDONE 0.5 MG TABLET PO SCH ×2 (09:55→20:20)
[2020-04-18] MEDS: METFORMIN HCL 500 MG TABLET PO SCH ×2 (09:55→17:39)
[2020-04-18] MEDS: CLOTRIMAZOLE 1% CREAM 30 GM TUBE TOP SCH (09:57)
[2020-04-18] MEDS: AMMONIUM LACTATE 12% LOTION 225 GM BOTTLE TP SCH (09:57)
--- NOTE | 2020-04-18 10:02 | NUR ---
GPS: Nursing Notes: Protonix: Medication Protonix given at 06:10 am.
[2020-04-18 15:06] VITALS: BP 115/65
[2020-04-18 20:22] VITALS: BP 115/65
[2020-04-18] MEDS: risperiDONE 1 MG TABLET PO SCH (22:41)
[2020-04-19] MEDS: MAGNESIUM HYDROXIDE 30 ML LIQUID UDC PO PRN (05:51)
--- NOTE | 2020-04-19 06:25 | NUR ---
Pt slept 6.15 hrs. Pt requested for medication for constipation. He said he had "clumpy" bm yesterday. Given MOM. Had shower in am.
[2020-04-19] MEDS: PANTOPRAZOLE SODIUM 40 MG TABLET.DR PO SCH (06:34)
[2020-04-19 07:25] LABS: BASOPHILS # (AUTO) 0.1 K/uL (0.0-8.0); BASOPHILS % (AUTO) 1.7 % (0.0-2.0); EOSINOPHILS # (AUTO) 0.2 K/uL (0.0-0.7); EOSINOPHILS % (AUTO) 2.5 % (0.0-7.0); HEMATOCRIT 37.5 % (36.7-47.1); HEMOGLOBIN 12.7 g/dL (12.5-16.3); LYMPHOCYTES # (AUTO) 1.3 K/uL (20.0-40.0); LYMPHOCYTES % (AUTO) 20.2 % (20.5-51.5); MEAN CORPUSCULAR HEMOGLOBIN 29.6 uug (23.8-33.4); MEAN CORPUSCULAR HGB CONC 34 g/dL (32.5-36.3); MEAN CORPUSCULAR VOLUME 87.5 fL (73.0-96.2); MONOCYTES # (AUTO) 0.7 K/uL (2.0-10.0); MONOCYTES % (AUTO) 11.1 % (0.0-11.0); NEUTROPHILS # (AUTO) 4.1 K/uL (1.8-8.9); NEUTROPHILS % (AUTO) 64.5 % (38.5-71.5); PLATELET COUNT (AUTO) 374 K/uL (152-348); RED BLOOD CELL COUNT(AUTO) 4.29 MIL/uL (4.06-5.63); WHITE BLOOD COUNT (AUTO) 6.4 K/uL (3.6-10.2)
[2020-04-19 07:30] VITALS: BP 125/69
[2020-04-19 07:41] LABS: CREATININE 0.8 mg/dL (0.6-1.3); MAGNESIUM 2.2 mg/dL (1.8-2.4); PHOSPHOROUS 3.3 mg/dL (2.5-4.9); POTASSIUM 3.9 mmol/L (3.5-5.1)
[2020-04-19] MEDS: CARVEDILOL 6.25 MG TABLET PO SCH ×2 (08:39→17:09)
[2020-04-19] MEDS: METFORMIN HCL 500 MG TABLET PO SCH ×2 (08:39→17:09)
[2020-04-19] MEDS: risperiDONE 1 MG TABLET PO SCH ×2 (08:39→20:51)
[2020-04-19] MEDS: CLOTRIMAZOLE 1% CREAM 30 GM TUBE TOP SCH (08:40)
[2020-04-19] MEDS: ENOXAPARIN SODIUM 40 MG/0.4 ML DISP.SYRIN SQ SCH (08:40)
[2020-04-19] MEDS: AMMONIUM LACTATE 12% LOTION 225 GM BOTTLE TP SCH (08:41)
[2020-04-19 18:46] VITALS: BP 108/53
[2020-04-19 20:18] VITALS: BP 116/60
[2020-04-20] MEDS: PANTOPRAZOLE SODIUM 40 MG TABLET.DR PO SCH (06:32)
[2020-04-20 07:30] VITALS: BP 114/61
[2020-04-20] MEDS: CARVEDILOL 6.25 MG TABLET PO SCH ×3 (08:00→17:39)
[2020-04-20] MEDS: METFORMIN HCL 500 MG TABLET PO SCH ×3 (08:00→17:40)
[2020-04-20] MEDS: CLOTRIMAZOLE 1% CREAM 30 GM TUBE TOP SCH (08:11)
[2020-04-20] MEDS: risperiDONE 1 MG TABLET PO SCH ×3 (08:12→20:04)
[2020-04-20] MEDS: ENOXAPARIN SODIUM 40 MG/0.4 ML DISP.SYRIN SQ SCH (08:13)
[2020-04-20] MEDS: AMMONIUM LACTATE 12% LOTION 225 GM BOTTLE TP SCH (08:15)
[2020-04-20 16:00] VITALS: BP 125/67
--- NOTE | 2020-04-20 18:24 | NUR ---
patient refused all medication , irritable agitated stated that 'i do't want to take any medication today.
[2020-04-20] MEDS: MAGNESIUM HYDROXIDE 30 ML LIQUID UDC PO PRN (20:03)
[2020-04-20] MEDS: ACETAMINOPHEN 325 MG TABLET PO PRN (20:03)
[2020-04-20 20:06] VITALS: BP 134/68
--- NOTE | 2020-04-21 06:28 | NUR ---
PT SLEPT 7 HOURS AND 25 MINUTES. PT IN NO ACUTE DISTRESS. PT COOPERATIVE WITH CARE. PRESCRIBED MEDICATION GIVEN AND PT TOLERATED IT WELL. PT ASKING FOR FOOD AND DRINKS. SAFETY AND COMFORT PROVIDED. WILL ENDORSE TO INCOMING NURSE FOR CONTINUITY OF CARE.
[2020-04-21] MEDS: PANTOPRAZOLE SODIUM 40 MG TABLET.DR PO SCH (06:33)
[2020-04-21 07:30] VITALS: BP 126/69
[2020-04-21] MEDS: METFORMIN HCL 500 MG TABLET PO SCH ×2 (08:29→18:09)
[2020-04-21] MEDS: CARVEDILOL 6.25 MG TABLET PO SCH ×2 (08:30→18:09)
[2020-04-21] MEDS: risperiDONE 1 MG TABLET PO SCH ×2 (08:31→20:22)
[2020-04-21] MEDS: ENOXAPARIN SODIUM 40 MG/0.4 ML DISP.SYRIN SQ SCH (08:31)
[2020-04-21] MEDS: CLOTRIMAZOLE 1% CREAM 30 GM TUBE TOP SCH (09:06)
[2020-04-21] MEDS: AMMONIUM LACTATE 12% LOTION 225 GM BOTTLE TP SCH (09:07)
--- NOTE | 2020-04-21 11:45 | NUR ---
Gps/Group Leader Semiconductor Testing-Reviewed labs. emphasized and monitor fluid intake, kept on 800 ml /day. Patient in none compliant, Dietary dept. was called informed the need to see dry tray with each meals. Constantly reminds patient about his fluid intake, kept asking staff for something to drink. Sodium 134. Cricket Oliveros RAIL EQUIPMENT OPERATOR came in to see patient aware of labs., continue with present tx plan.
[2020-04-21 16:00] VITALS: BP 134/65
[2020-04-21] MEDS: MAGNESIUM HYDROXIDE 30 ML LIQUID UDC PO PRN (18:24)
[2020-04-21 20:00] VITALS: BP 125/67
--- NOTE | 2020-04-21 21:12 | NUR ---
Received pt walking in the hallway. No acute distress noted. Denies pain/ discomfort. Denies SI. Due meds given as ordered. On fluid restriction. Pt given snack for night time. Safety measures maintained. Will continue to monitor.
[2020-04-22] MEDS: PANTOPRAZOLE SODIUM 40 MG TABLET.DR PO SCH (06:34)
[2020-04-22 07:30] VITALS: BP 151/82
[2020-04-22] MEDS: METFORMIN HCL 500 MG TABLET PO SCH ×2 (08:34→17:07)
[2020-04-22] MEDS: risperiDONE 1 MG TABLET PO SCH ×2 (08:34→21:56)
[2020-04-22] MEDS: ENOXAPARIN SODIUM 40 MG/0.4 ML DISP.SYRIN SQ SCH (08:35)
[2020-04-22] MEDS: CLOTRIMAZOLE 1% CREAM 30 GM TUBE TOP SCH (08:35)
[2020-04-22] MEDS: CARVEDILOL 6.25 MG TABLET PO SCH ×2 (08:35→17:08)
[2020-04-22] MEDS: AMMONIUM LACTATE 12% LOTION 225 GM BOTTLE TP SCH (08:36)
[2020-04-22 16:00] VITALS: BP 139/72
[2020-04-22 20:00] VITALS: BP 129/64
[2020-04-23 07:30] VITALS: BP 132/69
[2020-04-23] MEDS: PANTOPRAZOLE SODIUM 40 MG TABLET.DR PO SCH (07:43)
[2020-04-23] MEDS: risperiDONE 1 MG TABLET PO SCH ×2 (08:27→20:57)
[2020-04-23] MEDS: METFORMIN HCL 500 MG TABLET PO SCH ×2 (08:27→17:03)
[2020-04-23] MEDS: CARVEDILOL 6.25 MG TABLET PO SCH ×2 (08:28→17:03)
[2020-04-23] MEDS: ENOXAPARIN SODIUM 40 MG/0.4 ML DISP.SYRIN SQ SCH (08:28)
[2020-04-23] MEDS: CLOTRIMAZOLE 1% CREAM 30 GM TUBE TOP SCH (08:28)
[2020-04-23] MEDS: AMMONIUM LACTATE 12% LOTION 225 GM BOTTLE TP SCH (08:29)
[2020-04-23 16:35] VITALS: BP 123/64
[2020-04-23 19:46] VITALS: BP 120/90
[2020-04-24] MEDS: PANTOPRAZOLE SODIUM 40 MG TABLET.DR PO SCH (06:46)
[2020-04-24 07:30] VITALS: BP 138/64
[2020-04-24] MEDS: METFORMIN HCL 500 MG TABLET PO SCH ×2 (08:23→17:03)
[2020-04-24] MEDS: ENOXAPARIN SODIUM 40 MG/0.4 ML DISP.SYRIN SQ SCH (08:24)
[2020-04-24] MEDS: AMMONIUM LACTATE 12% LOTION 225 GM BOTTLE TP SCH (08:24)
[2020-04-24] MEDS: risperiDONE 1 MG TABLET PO SCH ×2 (08:24→20:16)
[2020-04-24] MEDS: CARVEDILOL 6.25 MG TABLET PO SCH ×2 (08:24→17:02)
[2020-04-24] MEDS: CLOTRIMAZOLE 1% CREAM 30 GM TUBE TOP SCH (08:24)
[2020-04-24 16:00] VITALS: BP 107/59
[2020-04-24 20:25] VITALS: BP 114/59
--- NOTE | 2020-04-24 20:44 | NUR ---
Received patient while walking in the hallway. AAO x2. Able to make needs known. Compliant with medications. No behavioral issues. Fluid restrictions emphasized Has been cooperative with staff & peers. No SI. Continue to monitor.
[2020-04-25] MEDS: PANTOPRAZOLE SODIUM 40 MG TABLET.DR PO SCH (06:30)
[2020-04-25 07:30] VITALS: BP 133/64
[2020-04-25] MEDS: CARVEDILOL 6.25 MG TABLET PO SCH ×2 (08:38→17:27)
[2020-04-25] MEDS: ENOXAPARIN SODIUM 40 MG/0.4 ML DISP.SYRIN SQ SCH (08:38)
[2020-04-25] MEDS: risperiDONE 1 MG TABLET PO SCH ×2 (08:38→20:01)
[2020-04-25] MEDS: CLOTRIMAZOLE 1% CREAM 30 GM TUBE TOP SCH (08:38)
[2020-04-25] MEDS: AMMONIUM LACTATE 12% LOTION 225 GM BOTTLE TP SCH (08:38)
[2020-04-25] MEDS: METFORMIN HCL 500 MG TABLET PO SCH ×2 (08:38→17:26)
[2020-04-25 15:07] VITALS: BP 110/77
[2020-04-25 20:00] VITALS: BP 130/55
--- NOTE | 2020-04-25 20:36 | NUR ---
Received patient in bed. AAO x2. Able to make needs known.Compliant with meds.Fluid restrictions emphasized Has been cooperative with staff & peers.No SI.No nbehavioral issues. Continue to monitor.
[2020-04-26] MEDS: PANTOPRAZOLE SODIUM 40 MG TABLET.DR PO SCH (06:31)
[2020-04-26 07:11] LABS: BILIRUBIN,TOTAL 0.5 mg/dL (0.2-1.0); CREATININE 0.7 mg/dL (0.6-1.3); MAGNESIUM 1.9 mg/dL (1.8-2.4); PHOSPHOROUS 3.2 mg/dL (2.5-4.9); POTASSIUM 3.8 mmol/L (3.5-5.1); TOTAL PROTEIN, SERUM 6.6 g/dL (6.4-8.2)
[2020-04-26 07:30] VITALS: BP 128/65
[2020-04-26] MEDS: risperiDONE 1 MG TABLET PO SCH ×2 (08:28→20:29)
[2020-04-26] MEDS: METFORMIN HCL 500 MG TABLET PO SCH ×2 (08:28→17:18)
[2020-04-26] MEDS: CARVEDILOL 6.25 MG TABLET PO SCH ×2 (08:29→17:18)
[2020-04-26] MEDS: ENOXAPARIN SODIUM 40 MG/0.4 ML DISP.SYRIN SQ SCH (08:29)
[2020-04-26] MEDS: CLOTRIMAZOLE 1% CREAM 30 GM TUBE TOP SCH (08:30)
[2020-04-26] MEDS: AMMONIUM LACTATE 12% LOTION 225 GM BOTTLE TP SCH (08:30)
[2020-04-26 16:04] VITALS: BP 129/67
[2020-04-26 20:06] VITALS: BP 124/64
--- NOTE | 2020-04-27 00:04 | NUR ---
GPS: RECEIVED PT UP IN TV ROOM, A/OX3. AWARE OF SURROUNDING AND DENIED SI OR INTENT TO HARM. PT AMBULATORY WITH NO C/O ABNORMAL. COOPERATIVE WITH MEDS AND CARE. TOOK SHOWER WITH NO PHYSICAL ASSIST. PT ADHERING TO ALL CARE PLAN WILL CONTINUE TO MONITOR.
[2020-04-27] MEDS: PANTOPRAZOLE SODIUM 40 MG TABLET.DR PO SCH (07:02)
[2020-04-27 07:30] VITALS: BP_SYST 140; BP_SYST 40; BP_DIAS 69
[2020-04-27] MEDS: METFORMIN HCL 500 MG TABLET PO SCH ×2 (08:00→18:03)
[2020-04-27] MEDS: ENOXAPARIN SODIUM 40 MG/0.4 ML DISP.SYRIN SQ SCH (09:00)
[2020-04-27] MEDS: risperiDONE 1 MG TABLET PO SCH ×2 (09:09→20:24)
[2020-04-27] MEDS: CLOTRIMAZOLE 1% CREAM 30 GM TUBE TOP SCH (09:14)
[2020-04-27] MEDS: AMMONIUM LACTATE 12% LOTION 225 GM BOTTLE TP SCH (09:15)
[2020-04-27] MEDS: CARVEDILOL 6.25 MG TABLET PO SCH ×2 (09:34→18:03)
--- NOTE | 2020-04-27 12:55 | NUR ---
Social Work Coordination of Care: Spoke with Autumn, property management coordinator ([phone]) from [facility] and stated that patient is welcomed back upon admission.
--- NOTE | 2020-04-27 13:07 | NUR ---
Social Work Individual Therapy: anode worker met with patient for brief counseling. anode worker assessed for patient's presenting problem as pt was socially withdrawn. Patient presents with euthymic mood. Patient was vague while this scientific writer was providing brief therapy. He was just stating that he "feels better". anode worker actively listened.
[2020-04-27 16:00] VITALS: BP 108/61
[2020-04-27 20:05] VITALS: BP 129/67
[2020-04-28] MEDS: PANTOPRAZOLE SODIUM 40 MG TABLET.DR PO SCH (06:30)
[2020-04-28 07:13] LABS: BASOPHILS # (AUTO) 0.1 K/uL (0.0-8.0); BASOPHILS % (AUTO) 1.5 % (0.0-2.0); EOSINOPHILS # (AUTO) 0.1 K/uL (0.0-0.7); EOSINOPHILS % (AUTO) 2.5 % (0.0-7.0); HEMATOCRIT 36.4 % (36.7-47.1); HEMOGLOBIN 12.2 g/dL (12.5-16.3); LYMPHOCYTES # (AUTO) 1.5 K/uL (20.0-40.0); LYMPHOCYTES % (AUTO) 30.4 % (20.5-51.5); MEAN CORPUSCULAR HEMOGLOBIN 29.6 uug (23.8-33.4); MEAN CORPUSCULAR HGB CONC 34 g/dL (32.5-36.3); MEAN CORPUSCULAR VOLUME 87.8 fL (73.0-96.2); MONOCYTES # (AUTO) 0.4 K/uL (2.0-10.0); MONOCYTES % (AUTO) 8.5 % (0.0-11.0); NEUTROPHILS # (AUTO) 2.8 K/uL (1.8-8.9); NEUTROPHILS % (AUTO) 57.1 % (38.5-71.5); PLATELET COUNT (AUTO) 245 K/uL (152-348); RED BLOOD CELL COUNT(AUTO) 4.14 MIL/uL (4.06-5.63); WHITE BLOOD COUNT (AUTO) 4.9 K/uL (3.6-10.2)
[2020-04-28 07:30] VITALS: BP 123/64
[2020-04-28 07:36] LABS: CREATININE 0.7 mg/dL (0.6-1.3); MAGNESIUM 1.9 mg/dL (1.8-2.4); PHOSPHOROUS 3.9 mg/dL (2.5-4.9); POTASSIUM 4.1 mmol/L (3.5-5.1)
[2020-04-28] MEDS: METFORMIN HCL 500 MG TABLET PO SCH (08:27)
[2020-04-28 08:28] VITALS: BP 123/64
[2020-04-28] MEDS: CARVEDILOL 6.25 MG TABLET PO SCH (08:28)
[2020-04-28] MEDS: risperiDONE 1 MG TABLET PO SCH (08:28)
[2020-04-28] MEDS: CLOTRIMAZOLE 1% CREAM 30 GM TUBE TOP SCH (08:29)
[2020-04-28] MEDS: AMMONIUM LACTATE 12% LOTION 225 GM BOTTLE TP SCH (08:29)
[2020-04-28] MEDS: ENOXAPARIN SODIUM 40 MG/0.4 ML DISP.SYRIN SQ SCH (08:29)
--- NOTE | 2020-04-28 08:30 | NUR ---
Social Work Discharge Note: Patient will be discharged to [facility] [address] [place] [address] ([phone]). Patient will be provided ambulance transportation at 11AM. Spoke with Autumn, palliative care coordinator ([phone]) at the facility who stated they are ready to accept the patient today. Patient is alert and oriented x2-3 and is not able to plan for self-care at this time but is willing to accept care provided for him at the facility. Patient denies suicidal or homicidal ideation. Patient is aware and agreeable with discharge plans. Patient does not have any next of kin to notify of discharge plan. Patient presents with appropriate mood and congruent affect. Patient will follow-up with (Psychiatrist) Dr. Monterroso and (Inspector Motor Vehicles) Dr. Conde at [facility]. Patient signed the homeless waiver upon discharge, copy was placed in the chart, and resources were given.
--- NOTE | 2020-04-28 11:40 | NUR ---
Gps/Clinical Study Manager- Discharge planning in progress
--- NOTE | 2020-04-28 14:15 | NUR ---
Gps/[employer] Strip [employer] Supervisor- Report was given to Nurse Francois,@ [facility] , all belongings given back to patient ,reviewed discharged instructions, medications, safety , skin care, diet, patient verbalized understanding. No S.I. /No H.I. noted. Patient in good spirit , no complaints noted. Discharged via ambulance.
== END 2020-04-28 14:27 | DRG 885 ==
LOC: ER 20:54 → GPS 21:13
PROVIDERS: ADMIT Psychiatry & Neurology Psychiatry; ATTEND Registered Nurse
PROC: 0HBRXZZ Excision of Toe Nail, External Approach (ICD-10-PCS; principal; 2020-04-16)
DX: F29 Unspecified psychosis not due to a substance or known physiological condition (principal); E87.1 Hypo-osmolality and hyponatremia; E11.42 Type 2 diabetes mellitus with diabetic polyneuropathy; Z59.0 Homelessness; B35.3 Tinea pedis; B35.1 Tinea unguium; E83.42 Hypomagnesemia; D72.829 Elevated white blood cell count, unspecified; F20.9 Schizophrenia, unspecified; I10 Essential (primary) hypertension; F43.10 Post-traumatic stress disorder, unspecified; F31.9 Bipolar disorder, unspecified; J45.909 Unspecified asthma, uncomplicated; Z79.4 Long term (current) use of insulin; Z53.20 Procedure and treatment not carried out because of patient's decision for unspecified reasons; K40.90 Unilateral inguinal hernia, without obstruction or gangrene, not specified as recurrent; Z73.6 Limitation of activities due to disability; A08.4 Viral intestinal infection, unspecified; Z79.84 Long term (current) use of oral hypoglycemic drugs; D47.3 Essential (hemorrhagic) thrombocythemia
CPT/HCPCS: 36415; 82533; 83735; 84100; 84300; 84443; 84550; 85025; 93005; A4663; J1650; J1815